=== PATIENT | male | born 1950 | race Caucasian/White ===

== ENCOUNTER 2019-10-11 22:08 | Observation (INO) | payer MEDICARE, OTHER ==
[2019-10-11] MEDS ORDERED: Acetaminophen 500 MG Tab PO ONE (22:27)
[2019-10-11 23:11] LABS: ANION GAP 13.6 mmol/L (10-20); CHLORIDE,CL 102 mmol/L (98-107); SODIUM,NA 138 mmol/L (136-145)
[2019-10-11] MEDS ORDERED: Prochlorperazine 10 MG/2 ML SDV IM ONE (23:12)
[2019-10-11] MEDS ORDERED: Take Home: Ondansetron 4 MG Tab.DIS, 2 Tab Pack PO ONE (23:12)
[2019-10-11] MEDS ORDERED: Sodium Chloride 0.9% 10 ML Syringe FLUSH PRN (23:28)
[2019-10-11] MEDS ORDERED: Sodium Chloride 0.9% 1,000 ML IV ONE (23:38)
[2019-10-11] MEDS ORDERED: Iopamidol 612 MG/ML 100 ML Bottle IVPUSH ONE (23:42)
--- NOTE | 2019-10-12 00:29 | EDM.PDOC ---
ED HPI GENERAL MEDICAL PROBLEM - General Chief Complaint: Fever Stated Complaint: Fever \ Runny Nose Time Seen by Provider: 10/11/19 22:18 Source of Information: Reports: Patient, Family History Limitations: Reports: No Limitations - History of Present Illness INITIAL COMMENTS - FREE TEXT/NARRATIVE: Pt. presents to ER with complaints of fever, chills, runny nose, and vomiting x 1. He denies any diarrhea. She states that he underwent umbilical hernia repair last week. Pt. states that he just started feeling poorly tonight. Denies any sick contacts. He has not had any chest pain or shortness of breath. No jaw, arm , neck or back pain. Pt. does complain of some diffuse abdominal discomfort. He has not had any rash. No recent travel outside of the country. Pt. denies any headache. No nuchal rigidity. No neck or back pain. He denies any sore throat. Again, he does have some mild rhinorrhea. He states that he has had a flu shot. Onset Date: 10/11/19 Location: Reports: Face, Abdomen, Generalized Associated Symptoms: Reports: Fever/Chills, Nausea/Vomiting - Related Data Allergies Allergy/AdvReac Type Severity Reaction Status Date / Time No Known Allergies Allergy Verified 10/11/19 22:40 Home Meds: Home Meds Aspirin 81 mg PO DAILY 10/11/19 [History] Cyclobenzaprine [Flexeril] 10 mg PO TID PRN 10/11/19 [History] Pantoprazole Sodium [Protonix] 40 mg PO DAILY 10/11/19 [History] amLODIPine Besylate/Benazepril [Lotrel 5-40 MG] 1 cap PO DAILY 10/11/19 [History ] Past Medical History HEENT History: Reports: Hard of Hearing, Other (See Below) Other HEENT History: Meniere's Disease Cardiovascular History: Reports: Hypertension Gastrointestinal History: Reports: GERD Other Gastrointestinal History: Ulcerative Colitis - Past Surgical History GI Surgical History: Reports: Hernia Repair/Other Social & Family History - Tobacco Use Smoking Status *Q: Never Smoker - Recreational Drug Use Recreational Drug Use: No ED ROS GENERAL - Review of Systems Review Of Systems: See Below Constitutional: Reports: Fever, Chills HEENT: Reports: Other (rhinorrhea) Respiratory: Reports: No Symptoms Cardiovascular: Reports: No Symptoms Endocrine: Reports: No Symptoms GI/Abdominal: Reports: Nausea, Vomiting : Reports: No Symptoms Musculoskeletal: Reports: No Symptoms Skin: Reports: No Symptoms Neurological: Reports: No Symptoms Psychiatric: Reports: No Symptoms Hematologic/Lymphatic: Reports: No Symptoms Immunologic: Reports: No Symptoms ED EXAM, GENERAL - Physical Exam Exam: See Below Exam Limited By: No Limitations General Appearance: Alert, WD/WN, No Apparent Distress Eye Exam: Bilateral Eye: EOMI, Normal Fundi, Normal Inspection, PERRL Ears: Normal External Exam, Normal Canal, Hearing Grossly Normal, Normal TMs Ear Exam: Bilateral Ear: Auricle Normal, Canal Normal, TM normal Nose: Normal Inspection, Normal Mucosa, No Blood Throat/Mouth: Normal Inspection, Normal Lips, Normal Teeth, Normal Gums, Normal Oropharynx, Normal Voice, No Airway Compromise Head: Atraumatic, Normocephalic Neck: Normal Inspection, Supple, Non-Tender, Full Range of Motion Respiratory/Chest: No Respiratory Distress, Lungs Clear, Normal Breath Sounds, No Accessory Muscle Use, Chest Non-Tender Cardiovascular: Normal Peripheral Pulses, Regular Rate, Rhythm, No Edema, No Gallop, No JVD, No Murmur, No Rub Peripheral Pulses: 4+: Radial (R) GI/Abdominal: Normal Bowel Sounds, Soft, No Organomegaly, No Distention, No Abnormal Bruit, No Mass, Tender (diffusely tender to palpation). No: Distended (Male) Exam: Deferred Rectal (Males) Exam: Deferred Back Exam: Normal Inspection, Full Range of Motion Extremities: Normal Inspection, Normal Range of Motion, Non-Tender, No Pedal Edema, Normal Capillary Refill Neurological: Alert, Oriented, CN II-XII Intact, Normal Cognition, Normal Gait, Normal Reflexes, No Motor/Sensory Deficits Psychiatric: Normal Affect, Normal Mood Skin Exam: Warm, Dry, Intact, Normal Color, No Rash Lymphatic: No Adenopathy Course - Vital Signs Last Recorded V/S: Last Vital Signs Temp 38.7 C H 10/12/19 00:26 Pulse 81 10/12/19 00:26 Resp 16 10/12/19 00:26 BP 135/66 10/12/19 00:26 Pulse Ox 97 10/12/19 00:26 - Orders/Labs/Meds Orders: Active Orders 24 hr Category Date Time Status Patient Status [ADT] Routine ADT 03/09/20 00:45 Ordered Chest 2V [CR] Stat Exams 10/11/19 22:25 Taken Chest Abdomen Pelvis w Cont [CT] Stat Exams 10/11/19 23:34 Taken CULTURE BLOOD [BC] Stat Lab 10/11/19 22:38 Received CULTURE BLOOD [BC] Stat Lab 10/11/19 22:44 Results Sodium Chloride 0.9% [Saline Flush] Med 10/11/19 23:28 Active 10 ml FLUSH ASDIRECTED PRN Blood Culture x2 Reflex Set [OM.PC] Stat Oth 10/11/19 22:27 Ordered Peripheral IV Insertion Adult [OM.PC] Routine Oth 10/11/19 23:28 Ordered Medication Orders Sodium Chloride (Saline Flush) 10 ml FLUSH ASDIRECTED PRN PRN Reason: Keep Vein Open Labs: Laboratory Tests 10/11/19 10/11/19 10/11/19 Range/Units 22:38 22:38 22:38 WBC 11.6 H (4.0-10.0) x10^3/uL RBC 5.05 (4.5-6.0) x10^6/uL Hgb 16.2 (14.0-18.0) g/dL Hct 46.6 (40.0-52.0) % MCV 92.3 (78.0-93.0) fL MCH 32.1 H (26.0-32.0) pg MCHC 34.8 (32.0-36.0) g/dL RDW Coeff of Daniel 13.5 (10.0-15.0) % Plt Count 170 (130-400) x10^3/uL Add Manual Diff Yes Neutrophils % (Manual) 81 H (50-80) % Band Neutrophils % 7 H (0-6) % Lymphocytes % (Manual) 6 L (25-50) % Monocytes % (Manual) 5 (2-11) % Eosinophils % (Manual) 1 (0-4) % Platelet Estimate Adequate PT 11.0 (10.0-12.8) SEC INR 1.0 L (2.0-3.5) Sodium 138 (136-145) mmol/L Potassium 4.6 (3.5-5.1) mmol/L Chloride 102 (98-107) mmol/L Carbon Dioxide 27 (21-32) mmol/L Anion Gap 13.6 (10-20) mmol/L BUN 13 (7-18) mg/dL Creatinine 1.2 (0.70-1.30) mg/dL Est Cr Clr Drug Dosing 58.92 mL/min Estimated GFR (MDRD) > 60 Glucose 176 H (74-106) mg/dL Lactic Acid (0.4-2.0) mmol/L Calcium 8.9 (8.5-10.1) mg/dL Corrected Calcium 9.06 (8.5-10.1) mg/dL Magnesium 1.7 L (1.8-2.4) mg/dL Total Bilirubin 1.1 H (0.2-1.0) mg/dL AST 22 (15-37) U/L ALT 51 (16-63) U/L Alkaline Phosphatase 82 (46-116) U/L C-Reactive Protein 1.9 H (<=0.9) mg/dL Total Protein 7.6 (6.4-8.2) g/dL Albumin 3.8 (3.4-5.0) g/dL Globulin 3.8 Albumin/Globulin Ratio 1.00 Urine Color (YELLOW) Urine Appearance (CLEAR) Urine pH (5.0-8.0) Ur Specific [place] Urine Protein (NEGATIVE) mg/dL Urine Glucose (UA) (NEGATIVE) mg/dL Urine Ketones (NEGATIVE) mg/dL Urine Occult Blood (NEGATIVE) Urine Nitrite (NEGATIVE) Urine Bilirubin (NEGATIVE) Urine Urobilinogen (0.2) EU/dL Ur Leukocyte Esterase (NEGATIVE) Urine RBC (NOT SEEN) /HPF Urine WBC (NOT SEEN) /HPF Ur Squamous Epith Cells (NEGATIVE) /HPF Urine Bacteria (NEGATIVE) /HPF Urine Mucus (NEGATIVE) /LPF 10/11/19 10/11/19 Range/Units 22:38 22:57 WBC (4.0-10.0) x10^3/uL RBC (4.5-6.0) x10^6/uL Hgb (14.0-18.0) g/dL Hct (40.0-52.0) % MCV (78.0-93.0) fL MCH (26.0-32.0) pg MCHC (32.0-36.0) g/dL RDW Coeff of Daniel (10.0-15.0) % Plt Count (130-400) x10^3/uL Add Manual Diff Neutrophils % (Manual) (50-80) % Band Neutrophils % (0-6) % Lymphocytes % (Manual) (25-50) % Monocytes % (Manual) (2-11) % Eosinophils % (Manual) (0-4) % Platelet Estimate PT (10.0-12.8) SEC INR (2.0-3.5) Sodium (136-145) mmol/L Potassium (3.5-5.1) mmol/L Chloride (98-107) mmol/L Carbon Dioxide (21-32) mmol/L Anion Gap (10-20) mmol/L BUN (7-18) mg/dL Creatinine (0.70-1.30) mg/dL Est Cr Clr Drug Dosing mL/min Estimated GFR (MDRD) Glucose (74-106) mg/dL Lactic Acid 2.9 H* (0.4-2.0) mmol/L Calcium (8.5-10.1) mg/dL Corrected Calcium (8.5-10.1) mg/dL Magnesium (1.8-2.4) mg/dL Total Bilirubin (0.2-1.0) mg/dL AST (15-37) U/L ALT (16-63) U/L Alkaline Phosphatase (46-116) U/L C-Reactive Protein (<=0.9) mg/dL Total Protein (6.4-8.2) g/dL Albumin (3.4-5.0) g/dL Globulin Albumin/Globulin Ratio Urine Color Yellow (YELLOW) Urine Appearance Clear (CLEAR) Urine pH 7.0 (5.0-8.0) Ur Specific [place] 1.020 Urine Protein Negative (NEGATIVE) mg/dL Urine Glucose (UA) Negative (NEGATIVE) mg/dL Urine Ketones Trace H (NEGATIVE) mg/dL Urine Occult Blood Negative (NEGATIVE) Urine Nitrite Negative (NEGATIVE) Urine Bilirubin Negative (NEGATIVE) Urine Urobilinogen 0.2 (0.2) EU/dL Ur Leukocyte Esterase Negative (NEGATIVE) Urine RBC 0-5 (NOT SEEN) /HPF Urine WBC Not seen (NOT SEEN) /HPF Ur Squamous Epith Cells Not seen (NEGATIVE) /HPF Urine Bacteria Rare (NEGATIVE) /HPF Urine Mucus Rare H (NEGATIVE) /LPF Meds: Medications Generic Name Dose Route Start Last Admin Trade Name Freq PRN Reason Stop Dose Admin Sodium Chloride 10 ml 03/08/20 23:28 Saline Flush FLUSH ASDIRECTED PRN Keep Vein Open Discontinued Medications Generic Name Dose Route Start Last Admin Trade Name Bryant PRN Reason Stop Dose Admin Acetaminophen 1,000 mg 10/11/19 22:27 10/11/19 22:30 Tylenol Extra Strength PO 10/11/19 22:28 1,000 mg ONETIME ONE Administration Sodium Chloride 1,000 mls @ 1,000 mls/hr 10/11/19 23:38 10/12/19 00:02 Normal Saline IV 10/12/19 00:37 1,000 mls/hr .BOLUS ONE Administration Iopamidol 100 ml 10/11/19 23:42 10/12/19 00:04 Isovue-300 (61%) IVPUSH 10/11/19 23:43 100 ml ONETIME ONE Administration Ondansetron HCl 1 packet 10/11/19 23:12 10/11/19 23:15 Take Home: Ondansetron Odt 4 Mg, 2 Tab Pack PO 10/11/19 23:13 1 packet ONETIME ONE Administration Prochlorperazine Edisylate 10 mg 10/11/19 23:12 10/11/19 23:15 Compazine IM 10/11/19 23:13 10 mg ONETIME ONE Administration - Radiology Interpretation Free Text/Narrative:: chest x-ray is negative for acute pathology CT chest, abdomen and pelvis were obtained. No intrathoracic pathology noted. CT abdomen did not reveal any obstruction or free air. No thickening of the bowel wall. Liver, spleen, pancreas, and adrenals without pathology. Small L renal cyst noted. Departure - Departure Time of Disposition: 00:49 Disposition: Home, Self-Care 01 Clinical Impression: Gastroenteritis, Lactic acidosis - Discharge Information Referrals: Krystina Le DO [Primary Care Provider] - Forms: ED Department Discharge Sepsis Event Note - Evaluation Sepsis Screening Result: Possible Sepsis Risk - Focused Exam Vital Signs: Vital Signs Temp Temp Pulse Resp BP Pulse Ox 10/12/19 00:26 38.7 C H 81 16 135/66 97 10/11/19 23:00 37.8 C 10/11/19 22:35 37.9 C 88 16 145/74 H 96 10/11/19 22:30 37.9 C 10/11/19 22:20 37.9 C 94 16 152/85 H 97 Date Exam was Performed: 10/12/19 Time Exam was Performed: 00:46 - Problem List Review Problem List Initiated/Reviewed/Updated: Yes - My Orders Last 24 Hours: My Active Orders 10/11/19 22:25 Chest 2V [CR] Stat 10/11/19 22:27 Blood Culture x2 Reflex Set [OM.PC] Stat 10/11/19 22:38 CULTURE BLOOD [BC] Stat 10/11/19 22:44 CULTURE BLOOD [BC] Stat 10/11/19 23:28 Sodium Chloride 0.9% [Saline Flush] 10 ml FLUSH ASDIRECTED PRN Peripheral IV Insertion Adult [OM.PC] Routine 10/11/19 23:34 Chest Abdomen Pelvis w Cont [CT] Stat 10/12/19 00:45 Patient Status [ADT] Routine - Assessment/Plan Admission H&P: Please use this note as an admission H&P Last 24 Hours: My Active Orders 10/11/19 22:25 Chest 2V [CR] Stat 10/11/19 22:27 Blood Culture x2 Reflex Set [OM.PC] Stat 10/11/19 22:38 CULTURE BLOOD [BC] Stat 10/11/19 22:44 CULTURE BLOOD [BC] Stat 10/11/19 23:28 Sodium Chloride 0.9% [Saline Flush] 10 ml FLUSH ASDIRECTED PRN Peripheral IV Insertion Adult [OM.PC] Routine 10/11/19 23:34 Chest Abdomen Pelvis w Cont [CT] Stat 10/12/19 00:45 Patient Status [ADT] Routine Plan: Pt. will be admitted observation. Will trend his lactic acid. He has vomited in ER but has not had any diarrhea. Will continue with IV normal saline at 150ml/ hr. Zofran as needed for nausea/vomiting. Anticipate discharge in the AM. Will repeat CBC and BMP in AM as well. He is a code 1.
[2019-10-12] MEDS ORDERED: Ondansetron 4 MG/2 ML SDV IVPUSH PRN (00:55)
[2019-10-12] MEDS ORDERED: Cyclobenzaprine 10 MG Tab PO PRN (00:56)
[2019-10-12] MEDS ORDERED: Lactated Ringers 1,000 ML IV SCH (01:00)
[2019-10-12] MEDS ORDERED: Acetaminophen 500 MG Tab PO PRN ×2 (03:00→05:28)
[2019-10-12 07:46] LABS: CHLORIDE,CL 106 mmol/L (98-107); SODIUM,NA 140 mmol/L (136-145)
--- NOTE | 2019-10-12 07:47 | CT ---
[id number] CT/CT Chest Abdomen Pelvis W IV Exam: CT Chest Abdomen Pelvis W IV Clinical Data: FEVER RECENT SURGERY COMPARISON: NO PREVIOUS SIMILAR EXAM IS AVAILABLE FINDINGS: There is no pulmonary parenchymal pleural effusion There is no mediastinal mass or adenopathy The liver and spleen, pancreas and aorta are unremarkable. The gallbladder is not distended The mesenteric vessels demonstrate normal enhancement A small left renal cyst is seen There are atheromatous calcifications The pelvis shows no mass or adenopathy Apparent thickening of the wall of the urinary bladder likely relates to incomplete distention Surgical changes of the anterior abdominal wall are seen There is no evidence of appendicitis IMPRESSION: NO SOURCE OF FEVER IDENTIFIED Zheng King MD 10/12/19 0745 Thank you for allowing us to participate in the care of your patient.
--- NOTE | 2019-10-12 07:48 | CR ---
[id number] RAD/RAD Chest PA And Lateral EXAM: RAD Chest PA And Lateral CLINICAL DATA: SYNCOPE. BRADYCARDIA COMPARISON: NO PREVIOUS SIMILAR EXAM IS AVAILABLE. FINDINGS: There is discoid atelectasis or scar at the left lung base The lungs otherwise are clear The cardiomediastinal contour is moderately enlarged IMPRESSION: MINIMAL SCAR OR DISCOID ATELECTASIS LEFT BASE Zheng King MD 10/12/19 0746 Thank you for allowing us to participate in the care of your patient.
[2019-10-12 07:49] LABS: ANION GAP 13.3 mmol/L (10-20)
[2019-10-12] MEDS ORDERED: Aspirin 81 MG Tab.Chew PO SCH (08:00)
[2019-10-12] MEDS ORDERED: amLODIPine 5 MG Tab PO SCH (08:00)
[2019-10-12] MEDS ORDERED: Lisinopril 20 MG Tab PO SCH (08:00)
[2019-10-12] MEDS ORDERED: Pantoprazole 40 MG Tab.CR PO SCH (08:00)
--- NOTE | 2019-10-12 08:41 | PCM.DCSUM1 ---
Discharge Summary - Hospital Course HPI Initial Comments: Patient presented to the ER last night with c/o shaking chills, He had a fever and vomited once before arrival and once upon arrival in ER. His labs showed an elevation in white count, lactic acid. He was dehydrated. He denied cough, URI symptoms, had some right sided abdominal pain. He is otherwise healthy. Diagnosis: Stroke: No - Discharge Data Discharge Date: 10/12/19 Discharge Disposition: Home, Self-Care 01 Condition: Good - Referral to Home Health Primary Care Physician: Krystina Le, DO - Discharge Diagnosis/Problem(s) (1) Gastroenteritis SNOMED Code(s): 99270728 ICD Code: K52.9 - NONINFECTIVE GASTROENTERITIS AND COLITIS, UNSPECIFIED Status: Resolved Priority: High Current Visit: Yes Onset Date: ~10/11/19 (2) Lactic acidosis SNOMED Code(s): 09859506 ICD Code: E87.2 - ACIDOSIS Status: Resolved Priority: Medium Current Visit: Yes - Patient Summary/Data Recommended Follow-up Testing/Procedures: Follow up with Dr. Le if your symptoms do not resolve or if your condition worsens including your fever. Hospital Course: He improved overnight with treatment with IVF. He also received some Zofran and Tylenol. He denies any concerning symptoms and in fact states he doesn't know why he is here. He is very anxious for discharge and seems to be completely capable of following up if his fever or vomiting continues or returns. He is advised to return if he has significant worsening or fever does not resolve. WBC now normal but bands still mildly elevated. Lactic acid 0.9. CT of abdomen/pelvis and CXR were normal. His fever is likely due to a viral process but he is advised of significance of continued fever and possible outcomes. He denies abdominal pain and physical exam is normal. I did recommend that he stay until fever is gone but he is adamant that he wants to go home. He verbalizes understanding of follow up instructions. - Patient Instructions Diet: Regular Diet as Tolerated, Drink 8-10+ Glasses/Day Activity: As Tolerated Driving: May Drive Today Showering/Bathing: May Shower Wound/Incision Care: Keep Operative Site/Wound Site Clean and Dry Notify Provider of: Fever, Increased Pain, Swelling and Redness, Drainage, Nausea and/or Vomiting - Discharge Plan *PRESCRIPTION DRUG MONITORING PROGRAM REVIEWED*: Not Applicable *COPY OF PRESCRIPTION DRUG MONITORING REPORT IN PATIENT LISA: Not Applicable Home Medications: Home Meds Aspirin 81 mg PO DAILY 10/11/19 [History] Cyclobenzaprine [Flexeril] 10 mg PO TID PRN 10/11/19 [History] Pantoprazole Sodium [Protonix] 40 mg PO DAILY 10/11/19 [History] amLODIPine Besylate/Benazepril [Lotrel 5-40 MG] 1 cap PO DAILY 10/11/19 [History ] Oxygen Therapy Mode: Room Air Patient Handouts: Viral Gastroenteritis, Adult Forms: ED Department Discharge Referrals: Krystina Le DO [Primary Care Provider] - - Discharge Summary/Plan Comment DC Time >30 min.: No Discharge Summary/Plan Comment: He improved overnight with treatment with IVF. He also received some Zofran and Tylenol. He denies any concerning symptoms and in fact states he doesn't know why he is here. He is very anxious for discharge and seems to be completely capable of following up if his fever or vomiting continues or returns. He is advised to return if he has significant worsening or fever does not resolve. WBC now normal but bands still mildly elevated. Lactic acid 0.9. CT of abdomen/pelvis and CXR were normal. His fever is likely due to a viral process but he is advised of significance of continued fever and possible outcomes. He denies abdominal pain and physical exam is normal. I did recommend that he stay until fever is gone but he is adamant that he wants to go home. He verbalizes understanding of follow up instructions. - General Info Date of Service: 10/12/19 Admission Dx/Problem (Free Text: Dehydration Gastroenteritis Lactic acidosis Subjective Update: Patient states he is feeling well. He woke up with a heavy sweat during the night and now feels better. He ate some clear liquids without problem. He denies chills, fever or body aches. He denies cough, URI symptoms. He denies nausea. He has not vomited since he was in ER last night. He had a normal BM this morning but did not have diarrhea. He denies feeling constipated. He no longer has abdominal pain in RLQ. He feels hungry and would like to eat some "garduno". He is anxious to go home and does not feel sick. Functional Status: Reports: Tolerating Diet, Ambulating, Urinating - Review of Systems General: Reports: No Symptoms HEENT: Reports: No Symptoms Pulmonary: Reports: No Symptoms Cardiovascular: Reports: No Symptoms Gastrointestinal: Reports: No Symptoms Genitourinary: Reports: No Symptoms Musculoskeletal: Reports: No Symptoms Skin: Reports: Dryness Neurological: Reports: No Symptoms Psychiatric: Reports: No Symptoms - Patient Data Vitals - Most Recent: Last Vital Signs Temp 100.3 F 10/12/19 06:00 Pulse 69 10/12/19 06:00 Resp 18 10/12/19 06:00 BP 116/59 L 10/12/19 06:00 Pulse Ox 93 L 10/12/19 06:00 Weight - Most Recent: 200 lb I&O - Last 24 hours: Intake & Output 10/11/19 10/12/19 10/12/19 22:59 06:59 14:59 Intake Total 1499 Output Total 400 Balance 1099 Lab Results - Last 24 hrs: Laboratory Results - last 24 hr 10/11/19 10/11/19 10/11/19 Range/Units 22:38 22:38 22:38 WBC 11.6 H (4.0-10.0) x10^3/uL RBC 5.05 (4.5-6.0) x10^6/uL Hgb 16.2 (14.0-18.0) g/dL Hct 46.6 (40.0-52.0) % MCV 92.3 (78.0-93.0) fL MCH 32.1 H (26.0-32.0) pg MCHC 34.8 (32.0-36.0) g/dL RDW Coeff of Daniel 13.5 (10.0-15.0) % Plt Count 170 (130-400) x10^3/uL Add Manual Diff Yes Neutrophils % (Manual) 81 H (50-80) % Band Neutrophils % 7 H (0-6) % Lymphocytes % (Manual) 6 L (25-50) % Monocytes % (Manual) 5 (2-11) % Eosinophils % (Manual) 1 (0-4) % Platelet Estimate Adequate PT 11.0 (10.0-12.8) SEC INR 1.0 L (2.0-3.5) Sodium 138 (136-145) mmol/L Potassium 4.6 (3.5-5.1) mmol/L Chloride 102 (98-107) mmol/L Carbon Dioxide 27 (21-32) mmol/L Anion Gap 13.6 (10-20) mmol/L BUN 13 (7-18) mg/dL Creatinine 1.2 (0.70-1.30) mg/dL Est Cr Clr Drug Dosing 58.92 mL/min Estimated GFR (MDRD) > 60 Glucose 176 H (74-106) mg/dL Lactic Acid (0.4-2.0) mmol/L Calcium 8.9 (8.5-10.1) mg/dL Corrected Calcium 9.06 (8.5-10.1) mg/dL Magnesium 1.7 L (1.8-2.4) mg/dL Total Bilirubin 1.1 H (0.2-1.0) mg/dL AST 22 (15-37) U/L ALT 51 (16-63) U/L Alkaline Phosphatase 82 (46-116) U/L C-Reactive Protein 1.9 H (<=0.9) mg/dL Total Protein 7.6 (6.4-8.2) g/dL Albumin 3.8 (3.4-5.0) g/dL Globulin 3.8 Albumin/Globulin Ratio 1.00 Urine Color (YELLOW) Urine Appearance (CLEAR) Urine pH (5.0-8.0) Ur Specific [place] Urine Protein (NEGATIVE) mg/dL Urine Glucose (UA) (NEGATIVE) mg/dL Urine Ketones (NEGATIVE) mg/dL Urine Occult Blood (NEGATIVE) Urine Nitrite (NEGATIVE) Urine Bilirubin (NEGATIVE) Urine Urobilinogen (0.2) EU/dL Ur Leukocyte Esterase (NEGATIVE) Urine RBC (NOT SEEN) /HPF Urine WBC (NOT SEEN) /HPF Ur Squamous Epith Cells (NEGATIVE) /HPF Urine Bacteria (NEGATIVE) /HPF Urine Mucus (NEGATIVE) /LPF 10/11/19 10/11/19 10/12/19 Range/Units 22:38 22:57 03:35 WBC (4.0-10.0) x10^3/uL RBC (4.5-6.0) x10^6/uL Hgb (14.0-18.0) g/dL Hct (40.0-52.0) % MCV (78.0-93.0) fL MCH (26.0-32.0) pg MCHC (32.0-36.0) g/dL RDW Coeff of Daniel (10.0-15.0) % Plt Count (130-400) x10^3/uL Add Manual Diff Neutrophils % (Manual) (50-80) % Band Neutrophils % (0-6) % Lymphocytes % (Manual) (25-50) % Monocytes % (Manual) (2-11) % Eosinophils % (Manual) (0-4) % Platelet Estimate PT (10.0-12.8) SEC INR (2.0-3.5) Sodium (136-145) mmol/L Potassium (3.5-5.1) mmol/L Chloride (98-107) mmol/L Carbon Dioxide (21-32) mmol/L Anion Gap (10-20) mmol/L BUN (7-18) mg/dL Creatinine (0.70-1.30) mg/dL Est Cr Clr Drug Dosing mL/min Estimated GFR (MDRD) Glucose (74-106) mg/dL Lactic Acid 2.9 H* 0.8 (0.4-2.0) mmol/L Calcium (8.5-10.1) mg/dL Corrected Calcium (8.5-10.1) mg/dL Magnesium (1.8-2.4) mg/dL Total Bilirubin (0.2-1.0) mg/dL AST (15-37) U/L ALT (16-63) U/L Alkaline Phosphatase (46-116) U/L C-Reactive Protein (<=0.9) mg/dL Total Protein (6.4-8.2) g/dL Albumin (3.4-5.0) g/dL Globulin Albumin/Globulin Ratio Urine Color Yellow (YELLOW) Urine Appearance Clear (CLEAR) Urine pH 7.0 (5.0-8.0) Ur Specific [place] 1.020 Urine Protein Negative (NEGATIVE) mg/dL Urine Glucose (UA) Negative (NEGATIVE) mg/dL Urine Ketones Trace H (NEGATIVE) mg/dL Urine Occult Blood Negative (NEGATIVE) Urine Nitrite Negative (NEGATIVE) Urine Bilirubin Negative (NEGATIVE) Urine Urobilinogen 0.2 (0.2) EU/dL Ur Leukocyte Esterase Negative (NEGATIVE) Urine RBC 0-5 (NOT SEEN) /HPF Urine WBC Not seen (NOT SEEN) /HPF Ur Squamous Epith Cells Not seen (NEGATIVE) /HPF Urine Bacteria Rare (NEGATIVE) /HPF Urine Mucus Rare H (NEGATIVE) /LPF 10/12/19 10/12/19 10/12/19 Range/Units 06:52 06:52 06:52 WBC 9.2 (4.0-10.0) x10^3/uL RBC 4.66 (4.5-6.0) x10^6/uL Hgb 14.8 (14.0-18.0) g/dL Hct 42.7 (40.0-52.0) % MCV 91.6 (78.0-93.0) fL MCH 31.8 (26.0-32.0) pg MCHC 34.7 (32.0-36.0) g/dL RDW Coeff of Daniel 13.4 (10.0-15.0) % Plt Count 166 (130-400) x10^3/uL Add Manual Diff Yes Neutrophils % (Manual) 72 (50-80) % Band Neutrophils % 7 H (0-6) % Lymphocytes % (Manual) 11 L (25-50) % Monocytes % (Manual) 9 (2-11) % Eosinophils % (Manual) 1 (0-4) % Platelet Estimate Adequate PT (10.0-12.8) SEC INR (2.0-3.5) Sodium 140 (136-145) mmol/L Potassium 4.3 (3.5-5.1) mmol/L Chloride 106 (98-107) mmol/L Carbon Dioxide 25 (21-32) mmol/L Anion Gap 13.3 (10-20) mmol/L BUN 9 (7-18) mg/dL Creatinine 1.1 (0.70-1.30) mg/dL Est Cr Clr Drug Dosing 64.27 mL/min Estimated GFR (MDRD) > 60 Glucose 127 H (74-106) mg/dL Lactic Acid 0.9 (0.4-2.0) mmol/L Calcium 8.6 (8.5-10.1) mg/dL Corrected Calcium (8.5-10.1) mg/dL Magnesium (1.8-2.4) mg/dL Total Bilirubin (0.2-1.0) mg/dL AST (15-37) U/L ALT (16-63) U/L Alkaline Phosphatase (46-116) U/L C-Reactive Protein (<=0.9) mg/dL Total Protein (6.4-8.2) g/dL Albumin (3.4-5.0) g/dL Globulin Albumin/Globulin Ratio Urine Color (YELLOW) Urine Appearance (CLEAR) Urine pH (5.0-8.0) Ur Specific [place] Urine Protein (NEGATIVE) mg/dL Urine Glucose (UA) (NEGATIVE) mg/dL Urine Ketones (NEGATIVE) mg/dL Urine Occult Blood (NEGATIVE) Urine Nitrite (NEGATIVE) Urine Bilirubin (NEGATIVE) Urine Urobilinogen (0.2) EU/dL Ur Leukocyte Esterase (NEGATIVE) Urine RBC (NOT SEEN) /HPF Urine WBC (NOT SEEN) /HPF Ur Squamous Epith Cells (NEGATIVE) /HPF Urine Bacteria (NEGATIVE) /HPF Urine Mucus (NEGATIVE) /LPF VIRIDIANA Results - Last 24 hrs: Microbiology 10/11/19 22:45 Influenza Type A Antigen Screen - Final Nasal, Unspecified NEGATIVE INFLUENZA A VIRUS AG REFERENCE RANGE: NEGATIVE Influenza Type B Antigen Screen - Final NEGATIVE INFLUENZA B VIRUS AG REFERENCE RANGE: NEGATIVE 10/11/19 22:44 Anaerobic Blood Culture - Final Blood - Venous - Lab Draw Med Orders - Current: Current Medications Acetaminophen (Tylenol Extra Strength) 500 mg PO Q4H PRN PRN Reason: Fever Amlodipine Besylate (Norvasc) 5 mg PO DAILY [facility] Aspirin (Aspirin) 81 mg PO DAILY [facility] Cyclobenzaprine HCl (Flexeril) 10 mg PO TID PRN PRN Reason: Spasms Lactated Ringer's (Ringers, Lactated) 1,000 mls @ 100 mls/hr IV ASDIRECTED [facility] Last Admin: 10/12/19 01:25 Dose: 100 mls/hr Lisinopril (Prinivil) 40 mg PO DAILY [facility] Ondansetron HCl (Zofran) 4 mg IVPUSH Q6H PRN PRN Reason: Nausea/Vomiting Pantoprazole Sodium (Protonix) 40 mg PO DAILY [facility] Sodium Chloride (Saline Flush) 10 ml FLUSH ASDIRECTED PRN PRN Reason: Keep Vein Open Discontinued Medications Acetaminophen (Tylenol Extra Strength) 1,000 mg PO ONETIME ONE Stop: 10/11/19 22:28 Last Admin: 10/11/19 22:30 Dose: 1,000 mg Acetaminophen (Tylenol Extra Strength) 500 mg PO Q6H PRN PRN Reason: Fever Last Admin: 10/12/19 05:05 Dose: 500 mg Sodium Chloride (Normal Saline) 1,000 mls @ 1,000 mls/hr IV .BOLUS ONE Stop: 10/12/19 00:37 Last Admin: 10/12/19 00:02 Dose: 1,000 mls/hr Iopamidol (Isovue-300 (61%)) 100 ml IVPUSH ONETIME ONE Stop: 10/11/19 23:43 Last Admin: 10/12/19 00:04 Dose: 100 ml Ondansetron HCl (Take Home: Ondansetron Odt 4 Mg, 2 Tab Pack) 1 packet PO ONETIME ONE Stop: 10/11/19 23:13 Last Admin: 10/11/19 23:15 Dose: 1 packet Prochlorperazine Edisylate (Compazine) 10 mg IM ONETIME ONE Stop: 10/11/19 23:13 Last Admin: 10/11/19 23:15 Dose: 10 mg - Exam General: Reports: Alert, Oriented, Cooperative, No Acute Distress HEENT: Reports: Pupils Equal, Pupils Reactive, Mucous Membr. Moist/[place]. Denies : Scleral Icterus Neck: Reports: Supple, Trachea Midline Lungs: Reports: Clear to Auscultation, Normal Respiratory Effort. Denies: Crackles, Rales, Rhonchi Cardiovascular: Reports: Regular Rate, Regular Rhythm, No Murmurs GI/Abdominal Exam: Normal Bowel Sounds, Soft, Non-Tender, No Organomegaly, No Distention, No Abnormal Bruit, No Mass, Other (He has healing incision around umbilicus. There is no redness, swelling or significant tenderness.). No: Guarding, Rebound, Mass, Hepatomegaly (Male) Exam: Deferred Rectal (Males) Exam: Deferred Back Exam: Reports: Other (Back is damp) Extremities: Normal Inspection, No Pedal Edema, Normal Capillary Refill Skin: Reports: Warm, Intact Wound/Incisions: Reports: Healing Well, No Drainage. Denies: Erythema Neurological: Reports: No New Focal Deficit, Normal Speech, Strength Equal Bilateral Psy/Mental Status: Reports: Alert, Normal Affect
== END 2019-10-12 12:55 | disposition home or self-care (01) ==
LOC: VM.ED 22:08 → VM.MS 10-12 00:50
PROVIDERS: ADMIT Physician Assistant; ATTEND Physician Assistant
DX: K52.9 Noninfective gastroenteritis and colitis, unspecified (principal); E86.0 Dehydration; E87.2 Acidosis; I10 Essential (primary) hypertension; K21.9 Gastro-esophageal reflux disease without esophagitis; Z79.82 Long term (current) use of aspirin; Z79.899 Other long term (current) drug therapy; Z87.19 Personal history of other diseases of the digestive system; Z98.890 Other specified postprocedural states
CPT/HCPCS: 36415; 71046; 71260; 74177; 80048; 80053; 81001; 83605; 83735; 85025; 85610; 86140; 87040; 87804; 96360; 96372; 99217; 99220; 99285; A9270; G0378; J0780; J7030; J7120; Q9967

== ENCOUNTER 2025-03-11 00:50 | Emergency (ER) | payer MEDICARE, OTHER ==
[2025-03-11 02:01] LABS: BASOPHILS ABSOLUTE AUTO 0.1 x10^3/uL (0.0-0.2); BASOPHILS PERCENT AUTO 0.7 % (0.2-1.2); EOSINOPHILS ABSOLUTE AUTO 0.3 x10^3/uL (0.0-0.5); EOSINOPHILS PERCENT AUTO 3.4 % (0.0-4.0); IMMATURE GRAN ABSOLUTE AUTO 0.08 x10^3/uL (0.00-0.07); IMMATURE GRAN PERCENT AUTO 1.10 % (0.00-0.43); LYMPHOCYTES ABSOLUTE AUTO 2.3 x10^3/uL (1.0-4.8); LYMPHOCYTES PERCENT AUTO 30.8 % (25.0-50.0); MONOCYTES ABSOLUTE AUTO 0.9 x10^3/uL (0.0-0.8); MONOCYTES PERCENT AUTO 12.4 % (2.0-11.0); NEUTROPHILS ABSOLUTE AUTO 3.8 x10^3/uL (1.8-7.7); NEUTROPHILS PERCENT AUTO 51.6 % (50.0-80.0); PLATELET COUNT,PLT 175 x10^3/uL (130-400); RED BLOOD CELL COUNT 4.59 x10^6/uL (4.5-6.0); WHITE BLOOD CELL COUNT,WBC 7.4 x10^3/uL (4.0-10.0)
[2025-03-11 02:20] LABS: A/G RATIO 0.97; ALANINE AMINOTRANSFERASE,ALT 48.0 U/L (16-63); ASPARTATE AMNIOTRANSFERASE,AST 26.0 U/L (15-37); BILIRUBIN TOTAL 0.5 mg/dL (0.2-1.0); BLOOD UREA NITROGEN,BUN 14.0 mg/dL (7-18); CARBON DIOXIDE,CO2 29.0 mmol/L (21-32); CHLORIDE,CL 104.0 mmol/L (98-107); CREATININE 0.9 mg/dL (0.70-1.30); EST CRCL DRUG DOSING (CG) 73.1 mL/min; GLUCOSE RANDOM 145.0 mg/dL (70-99); POTASSIUM,K 3.7 mmol/L (3.5-5.1); PROTEIN TOTAL,TP 6.7 g/dL (6.4-8.2); SODIUM,NA 142.0 mmol/L (136-145)
[2025-03-11 02:22] LABS: ESTIMATED GFR 90.0 mL/min (>=60)
== END 2025-03-11 02:46 | disposition home or self-care (01) ==
LOC: VM.ED 00:50
DX: K20.90 Esophagitis, unspecified without bleeding (principal); I10 Essential (primary) hypertension; K21.9 Gastro-esophageal reflux disease without esophagitis; Z88.6 Allergy status to analgesic agent; Z79.82 Long term (current) use of aspirin; Z79.899 Other long term (current) drug therapy
CPT/HCPCS: 36415; 80053; 83735; 84484; 85025; 93005; 99285; A9270; 93010; 99284